=== PATIENT | female | born 1975 | race Caucasian/White ===

== ENCOUNTER 2024-08-23 20:09 | Emergency (ER) | payer MEDICARE, SELFPAY ==
[2024-08-23] VITALS (12 sets, daily range): BP systolic 95–123; BP diastolic 63–82; PULSE 77–82; RESP 15–18; TEMP 36.4–37.1; O2SAT 92–100
--- NOTE | ~2024-08-23 | XR_ITS ---
Portable chest x-ray Comparison: None Clinical History: Dyspnea Findings: Lungs are clear, without focal consolidation or pleural effusion. Cardiomediastinal silho uette is unremarkable. Bones and soft tissues are unremarkable. Impression: Normal chest. Reviewed, dictated and finalized at location . KILN AND RECAUSTICIZING OPERATOR Impression: Normal chest.
[2024-08-23 21:39] LABS: Glucose Point of Care 131 mg/dl (65-105)
--- NOTE | 2024-08-23 21:41 | PC.NURSE ---
Patient ambulates to desk and requests food to eat. Patient states maybe my blood sugar is low and can I have something to eat. Patient informed that we will check her BG to see if it is low since recommend being seen by a provider before eating or drinking anything. POC BG ordered and result was 131.
--- NOTE | 2024-08-23 22:34 | PC.NURSE ---
Patient called for room assignment, no answer. Will call again.
[2024-08-23 23:07] LABS: Glucose Point of Care 82 mg/dl (65-105)
--- OUTSIDE RECORDS SUMMARY | 2024-08-23 23:45 | XMS_ITS ---
Author Organization [facility] Address [address] [place] [address] Care Team Providers Care Pilot Supervisor Name Role Phone Kaylen Miranda Primary Care Provider [phone] Román Vides Unavailable [phone] Allergies Allergen (clinical drug ingredient) Drug/Non Drug Allergy documented on EMR Reaction Allergy Type Onset Date Status codeine Codeine Unknown Drug Allergy Active REASON FOR VISIT on CRU Social History Sex Assigned At : Social History Observation Description Sex Assigned At Female Problems Problem Type SNOMED Code ICD Code Onset Dates Problem Status W/U Status Risk Notes Problem 080484218 Overweight (BMI 25.0-29.9) (E66.3) Active confirmed Vital Signs Weight 166 lbs 08/19/2024 Height 66 in 08/19/2024 BMI 26.79 kg/m2 08/19/2024 Blood pressure systolic 130 mm Hg 08/19/19 25 Blood pressure diastolic 70 mm Hg 025 Heart Rate 103 /min 08/19/2024 Oximetry 97 % 08/19/2024 Respiratory Rate 16 /min 08/19/2024 Encounters Encounter Location Date Provider Diagnosis [place] [address] [place] [address] 08/19/2024 Román Vides Routine general medical examination at a health care facility Z00.00 ; Screening for tuberculosis Z11.1 ; Overweight (BMI 25.0-29.9) E66.3 and Nutritional counseling Z71.3 Assessments Encounter Date Diagnosis (ICD Code) Assessment Notes Treatment Notes Treatment Clinical Notes Section Notes 08/19/2024 Routine [facility] (ICD-10 - Z00.00) Continue treatment as recommended by [facility] staff. Encouraged patient to obtain routine medical care with patient's own primary care provider or establish as a patient at [facility] if no current primary care provider. 08/19/2024 Screening for tuberculosis (ICD-10 - Z11.1) 08/19/2024 Overweight (BMI 25.0-29.9) (ICD-10 - E66.3) 08/19/2024 Nutritional counseling (ICD-10 - Z71.3) 08/19/2024 Other Plan Of Treatment Treatment Notes Assessment Notes Routine general medical exam ination at a [facility] Continue treatment as recommended by [facility] staff. Encouraged patient to obtain routine medical care with patient's own primary care provider or establish as a patient at [facility] if no current primary care provider. Future Test Test Name Order Date QuantiFERON-TB Gold Plus 08/19/2024 Next Appt Details Follow Up: prn, Reason: Progress Notes * Kaylen GOLDSMITHDOB: 8 (48 yo F)Acc No.[id number]:08/19/2024 Patient:?Kaylen GOLDSMITH Provider:?Román Vides, MSN, AGPCNP -BC :1975???Age:48 Y???Sex:Female D ate:08/19/2024 Phone: Address:[address] [place], [place] [id number] Pcp:Kaylen Serrato Short Check In:02:19 PM ETL DATA ARCHITECT Subjective: * Chief Complaints: * ???on CRU * HPI: ???Interim History:?Emergency room visit?Yes.?Was hospitalized?Yes.?Depression Screening:?PHQ-9?Little interest or pleasure in doing things?More than half the days ?Feeling down, depressed, or hopeless?Nearly every day ?Trouble falling or staying asleep, or sleeping too much?Several days ?Feeling tired or having little energy?Several days ?Poor appetite or overeating?Several days ?Feeling bad about yourself or that you are a failure, or have let yourself or your family down?Nearly every day ?Trouble concentrating on things, such as reading the newspaper or watching television?More than half the days ?Moving or speaking so slowly that other people could have noticed; or the opposite, being so fidgety or restless that you have been moving around a lot more than usual?More than half the days ?Thoughts that you would be better off or of hurting yourself in some way?Not at all ?Total Score?15 ?Interpretation?Moderately Severe Depression ???Summary:? Presents for physical as patient is admitted to [facility] at [facility]. ???Do Not Use CSSRS Interpretation and Follow Up Plan:?CSSRS Interpretation and Follow Up Plan. * ROS:?Basic ROS:?Denies?Seizures.?Denies?Suicidal Thoughts.?Psych ROS:?Constitutional?Denies.?Eyes?Denies.?Ears/Nose/Mouth/Throat?Denies.?Respira tory?Denies.?Cardiovascular?Denies.?GI?Denies.??Denies.?Musculoskeletal?Denies .?Neurological?Denies. Integ umentary?Denies.?Hematological/Lymphatic?Denies.? * Medical History:? * Surgical History:?gastric by pass 2008 * Hospitalization/Major Diagno stic Procedure:?mental health 2024 * Family History:?Father: leoncio ohara?Mother: alive.?3 sister(s) - healthy. 2 son(s) , 1 daughter(s) - healthy. .? family healthy. * Social History:?Primary Social History:?Living Arrangement?Living Arrangement:?Homeless ?Alcohol Use?Alcohol Use Frequency:?Weekly or Daily ?Type of alcohol consumed?drinks voka doesnt know how much a day ?Illicit Substance Usage?Illicit Substance Usage:?No ?Employment Status?Employment Status:?Unemployed ???Miscellaneous:?Method of learning?Preferred method of learning:?Reading * Medications:? * Allergies:?Codeine Objective: * Vitals:?Initials: hp, Wt:166 , Ht: 66, BMI:26.79, BP:130/70, HR:103, Oxygen sat %:97, RR:16. * Examination: ???General Examination: ?GENERAL APPEARANCE:?alert, in no acute distress.?HEAD:?normocephalic, atraumatic.?EYES:?BOTH EYES, sclera anicteric, pupils equal, round, reactive to light and accommodation , extraocular movement intact (EOMI).?EARS?BOTH EARS, normal.?NOSE:?nares patent.?ORAL CAVITY:?mucosa moist.?THROAT:?pharynx normal.?NECK/THYROID:?neck supple , no thyromegaly.?SKIN:?warm and dry, no rashes, no suspicious lesions.?HEART:?regular rate and rhythm, S1, S2 normal, no S3, S4, no murmurs, rubs, gallops.?LUNGS:?respirations regular and easy, clear to auscultation bilaterally, no wheezes, rales, rhonchi, clear anteriorly and posteriorly, good air movement.?ABDOMEN:?bowel sounds present, soft, nontender, nondistended, no masses palpable, no organomegaly .?EXTREMITIES:?no edema.?PERIPHERAL PULSES:?2+ throughout.?NEUROLOGIC:?nonfocal, gait normal.?PSYCH:?appropriate affect.?Activity Permissions and Self-Administration Permissions: ?Activity Level & Medication Self-Administration Permissions? Assessment: * Assessment: 1.?Routine general medical e xamination at a health care facility - Z00.00 (Primary)???2.?Screening for tuberculosis - Z11.1???3.?Overweight (BMI 25.0- 29.9) - E66.3???4.?Nutritional counseling - Z71.3??? Plan: * Treatment: 2.?Screening for tuberculosi s?LAB: QuantiFERON-TB Gold Plus (Ordered for 08/19/2024) (Collection Date & Time - 08/19/2024 02:00 PM) * Recommended Wellness and Pre vention Guidelines: * ?Status ?Alert ?Last Done ?Next Due ?Action Taken ?NONCOMPLIANT ?Breast cancer screening ?- ? 025 ?- ?NONCOMPLIANT ?Cervical cancer screening ?- ?08/19 ?- ?NONCOMPLIANT ?Colorectal cancer screening ?- ? ?- ?NONCOMPLIANT ?Depression screening ?- ?08/19/2024 ?- ?NONCOMPLIANT ?HIV screening ?- ?08/19/2024 ?- * Procedure Codes:?61242 SELF- MGMT EDUC & TRAIN, 1 OR1374G BODY MASS INDEX [id number] MEDICAL NUTRITION, INDIV, [id number] [facility] VISIT NEW PATIENT * Preventive Medicine:? ??Counseling:?Care goal follow-up plan:?BMI management provided?Yes ?Above Normal BMI Follow-up?Lifestyle education regarding diet * Follow Up:?prn * * DATA ARCHITECT Sign off status: Completed true * Provider:?Román Vides, MSN, AGPCNP -BC Date:?08/19/2024 Generated for Printing/Faxing/eTransmitting on:?08/23/2024 11:45 PM ETL DATA ARCHITECT History and Physical Notes * HPI (History of Present Illness) Category Sub-Category Detail Notes Category Not es Interim History Was hospitalized Yes Emergency room visit Yes Depression Screening PHQ-9 Little inte rest or pleasure in doing things: More than half the days Feeling down, depressed, or hopeless: Ne dorina every day Trouble falling or staying asleep, or sl eeping too much: Several days Feeling tired or having little energy: S everal days Poor appetite or overeating: Several day s Feeling bad about yourself o r that you are a failure, or have let yourself or your family down: Nearly every day Trouble concentrating on thi ngs, such as reading the newspaper or watching television: More than half the days Moving or speaking so slowly that other people could have noticed; or the opposite, being so fidgety or restless that you have been moving around a lot more than usual: More than half the days Thoughts that you would be b edin off or of hurting yourself in some way: Not at all Total Score: 15 Interpretation: Moderately Severe Depres jayy Summary Presents for ysical as patient is admitted to [facility]idential [facility] at [facility]. Examination Category Sub-Category Detail Notes Category Not es General Examination GENERAL APPEARANCE: alert, in no a cute distress HEAD: normocephalic, atrau matic EYES: BOTH EYES, sclera an icteric, pupils equal, round, reactive to light and accommodation , extraocular movement intact (EOMI) EARS BOTH EARS, normal NOSE: nares patent THROAT: pharynx normal NECK/THYROID: neck supple , no thy romegaly HEART: regular rate and rhy thm, S1, S2 normal, no S3, S4, no murmurs, rubs, gallops LUNGS: respirations regular and easy, clear to auscultation bilaterally, no wheezes, rales, rhonchi, clear anteriorly and posteriorly, good air movement ABDOMEN: bowel sounds present , soft, nontender, nondistended, no masses palpable, no organomegaly NEUROLOGIC: nonfocal, gait iglesia l SKIN: warm and dry, no chano hes, no suspicious lesions EXTREMITIES: no edema PERIPHERAL PULSES: 2+ throughout PSYCH: appropriate affect ORAL CAVITY: mucosa moist Activity Permissions and Self-Administration Permissions Activity Level & Medication Self-Administration Permissions Activity Level Permitted:: The patient/client may fully take part in physical fitness programming including aerobic, muscular strength, and flexibility training without restriction. Medication Self-Administrati on Permissions:: Medications may be self- administered by the patient/client under the supervision of approved staff or administered by nursing staff.
--- OUTSIDE RECORDS SUMMARY | 2024-08-23 23:45 | XMS_ITS ---
Author Organization [facility] Address [address] [place] [address] Care Team Providers Care Car Shagger Name Role Phone Kaylen Miranda Primary Care Provider Román Vides [phone] Social History Sex Assigned At : Social History Observation Description Sex Assigned At Female Encounters Encounter Location Date Provider Diagnosis [address] [place] [address] 08/20/2024 Román Vides Plan Of Treatment No Information Progress Notes * RUPAL MartadangDOB: 8 (48 yo F)Acc No.[id number]:08/20/2024 UNLOCKED PROGRESS NOTE Patient:?Kaylen GOLDSMITH :1975???Age:48 Y???Sex:Female Phone: Address:[facility] [address] [facility] [address] Subjective: * Chief Complaints: * ??? * Medical History:? * Surgical History:? * Hospitalization/Major Diagno stic Procedure:? * Medications:? Objective: * Vitals:? * Physical Examination:? Assessment: Plan: * Treatment: * Procedure Codes:? * * Date:?
--- OUTSIDE RECORDS SUMMARY | 2024-08-23 23:45 | XMS_ITS | Clinical Summary ---
Author Organization [facility] Address [address] [place] [address] Care Team Providers Care Smt Technician Name Role Phone Naya Singh APRN Primary Care Provider [phone] Allergies Active Allergy Reactions Criticality Noted Date Comments Codeine Hives High 09/29/2022 Medications rOPINIRole (REQUIP) 0.5 MG Tablet TAKE 1 TABLET BY MOUTH EVERY DAY AT BEDTIME 12/18/2022 Active prazosin (MINIPRESS) 5 MG Capsule 10/12/2022 Active Mirtazapine (REMERON) 7.5 MG Tablet 01/11/2023 Active lamoTRIgine (LaMICtal) 100 MG Tablet TAKE 1 TABLET BY MOUTH DAILY IN ADDITION TO 200 MG TABLET 12/18/2022 Active lamoTRIgine (LaMICtal) 200 MG Tablet 01/11/2023 Active gabapentin (NEURONTIN) 300 MG Capsule Take 1,200 mg by mouth. Active Desvenlafaxine Succinate 100 MG TABLET SR 24 HR Take 100 mg by mouth. 09/27/2022 Active Vraylar 1.5 MG Capsule Take 1 Capsule by mouth daily. 12/06/2022 Active busPIRone (BUSPAR) 10 MG Tablet 01/11/2023 Active Buprenorphine HCl-Naloxone HCl 4-[address] 1 FILM UNDER THE TONGUE EVERY DAY 01/11/2023 Active Cariprazine HCl 1.5 MG Capsule Take 1.5 mg by mouth. Active metroNIDAZOLE (FLAGYL) 500 MG TabletIndicatio ns:BV (bacterial vaginosis) Sig: Take 1 PO twice daily x 7 days. Take with food. NO ETOH 14 Tablet 02/01/2023 Active fluconazole (DIFLUCAN) 150 MG TabletIndicatio ns:Antibiotic-i nduced yeast infection Sig: Take 1 PO at onset of vaginal itching 1 Tablet 02/01/2023 Active Active Problems No known active problems Social History Tobacco Use Types Packs/Day Years Used Date Smoking Tobacco: Unknown Comments No Sex and Gender Information Value Date Recorded Sex Assigned at Not on file Legal Sex Female 4:51 PM CDT Gender Identity Not on file Sexual Orientation Not on file Last Filed Vital Signs Vital Sign Reading Time Taken Comments Blood Pressure 129/79 02/01/2023 5:35 PM CDT Pulse 67 02/01/2023 5:35 PM CDT Temperature 36.3 ??C (97.4 ??F) 02/01/2023 5:35 PM CD T Respiratory Rate 18 02/01/2023 5:35 PM CDT Oxygen Saturation 97% 02/01/2023 5:35 PM CDT Inhaled Oxygen Concentration - - Weight 77.6 kg (171 lb) 02/01/2023 5:35 PM CDT Height - - Body Mass Index - - Plan of Treatment Health Maintenance Due Date Last Done Comments Pap Smear 1998 Cervical Cancer Screening (CCS) 10/03/2007 HPV/Cotest 10/03/2007 Hepatitis B Immunization (3 of 3 - 19+ 3-dose series) 04/04/2017 01/25/2017, 2016 Discussion re Starting/Frequency of Mammograms 2017 Colonoscopy 2022 Colorectal Cancer Screening 2022 Influenza Immunization (#1) 2024 06/09/2020, 1 SARS-COV-2 Immunization (2 - season) 2024 01/26/2021 Respiratory Syncytial Virus (RSV) Immunization (Adult) (1 - 1-dose 75+ series) 2052 DTaP/Tdap/Td Immunization Discontinued 2016, 03/19/2003, 02/06/1983, Additional history exists TdaP Immunization Completed 01/25/2017 Hepatitis C Virus (HCV) Screening Completed 12/28/2022, 12/28/2022, 09/29/2022 Meningococcal Immunization (ACWY) Aged Out No longer eligible based on patient's age to complete this topic Pneumococcal Immunization Combined Aged Out No longer eligible based on patient's age to complete this topic Rotavirus Immunization Aged Out No lo nger eligible based on patient's age to complete this topic Insurance MEDICARE C [facility] Care Teams Smt Technician Relationship Specialty Start Date End Date Naya Singh APRN [address] [place] [id number] PCP - General Family Medicine 02/01/23
--- OUTSIDE RECORDS SUMMARY | 2024-08-23 23:45 | XMS_ITS | Data Portability ---
Author Organization ZARINA DENNISGraham Baxter Address [address] [place] [address] Assessment No assessment recorded. Plan of Treatment Reminders Order Date Submit Date Provider Last Modified By Organization Details Last Modified Time Details Appointments None recorded. Lab hepatic function panel, serum 2014 015 [facility], [address] [place] [address], [address], [place], [address], 5 09:23:45 CBC w/ auto diff 2014 015 [facility], [address] [place] [address], [address], [place], [address], 5 09:23:43 TSH, serum or plasma 2014 015 [facility], [address] [place] [address], [address], [place], [address], 5 09:23:45 BMP, serum or plasma 2014 015 [facility], [address] [place] [address], [address], [place], [address], 5 09:23:44 lipid panel, serum 2014 015 [facility], [address] [place] [address], [address], [place], [address], 5 09:23:44 pap, IG + CT/NG + HR HPV 2014 015 [facility], [address] [facility], [address], [place], [address], 5 13:35:31 wet mount 2014 015 J[facility], [address] [facility], [address], [place], [address], 5 11:41:[address] referral - hx of alcohol and drug abuse. Notes increased liver enzymes in the past. Needs to establish care. Please eval and treat. 2014 015 ATHENAFAX Not available 5 18:50:51 endocrinol ogy referral - hx of gastric bypass and drug/alcoh ol abuse. Has developed hypoglycem ia and dumping syndrome. New to area and needs to establish care. Please eval and treat. 2014 015 ATHENAFAX Not available 5 19:55:14 Procedures None recorded. Surgeries None recorded. Imaging None recorded. Medication Orders chlordiaze poxide 25 mg capsule [address], [address], [place], [place], [id number], 5 16:15:12 hydrochlor othiazide 12.5 mg tablet [address], [address], [place], [id number], 5 16:15:12 citalopram 40 mg tablet [address], [address], [place], [id number], 5 16:15:12 olanzapine 20 mg tablet 2014 015 [place] [address] [address], [address], [address], [place], [place], [id number], 5 16:15:12 chlordiaze poxide 25 mg capsule 2014 015 [place] [address] [address], [address], [place], [place], [place], [id number], 5 16:15:12 citalopram 20 mg tablet 2014 015 [email or web address] [place] [address] [address], [address], [place], [place], [place], [id number], 5 10:42:18 Diflucan 150 mg tablet 2014 015 [place] [address] [address], [address], [place] [address] [place] [address], [id number], 5 14:05:24 nystatin 100,000 unit/gram topical powder 2014 015 [place] [address] [address], [address], [address], [place], [place], [id number], 5 14:05:24 Hibiclens 4 % topical liquid 2014 015 [place] [address] [address], [address], [place], [place], [place], [id number], 5 14:05:23 Bactroban Nasal 2 % ointment 2014 015 [place] [address] [address], [address], [place], [place], [place], [id number], 10/06/201 5 14:05:23 Levaquin 750 mg tablet 2014 015 [facility]-[address]11, [address] [facility], [place], [place], [id number], 5 14:05:24 Patient TargetsNo targets recorded. Patient Instructions Encounter Date Encounter Id Patient Instructions Last Modified By Organization Details Last Modified Time 03/03/2015 [id number] Increasing Citalopram to 40mg daily. Increasing Olanzapine to 20mg at night. Starting HCTZ 12.5mg tablet once daily for lower extremity edema. Monitor BP at home to make sure you are not less than 90/60. Will re-eval in 2-3 weeks. Lab work to check electrolytes, blood counts, thyroid function? ? ?and liver function. Will restart Librium at 25mg twice a day for 14 days. [email or web address] Not available 03/03/2015 12:05:13 05/03/2015 [id number] skin abscess: care instructions [email or web address] Not available 05/04/2015 08:57:14 Reason for Referral Pants Presser Referral for In creased liver function hx of alcohol and drug abuse. Notes increased liver enzymes in the past. Needs to establish care. Please eval and treat. Referring Physician: Penelope Baker, Test Carrier, Encounter Date: 03/03/2015 Endocrinology Referral for H ypoglycemia hx of gastric bypass and drug/alcohol abuse. Has developed hypoglycemia and dumping syndrome. New to area and needs to establish care. Please eval and treat. Referring Physician: Penelope Baker Test Carrier, Encounter Date: 03/03/2015 Results Created Date Observation Date Name Description Value Unit Range Abnormal Flag Note LastModifiedBy Organization Detail LastModifiedTime 03/03/20 15 03/04/2015 CBC w/ auto diff WBC 5.7 x10e3 /uL 3.4-10 .8 Not Available [facility] ([facility]) [address] [facility], [place], [address], 03/04/2015 09:23:43 03/03/20 15 03/04/2015 CBC w/ auto diff RBC 3.87 x10e6 /uL 3.77-5 .28 Not Available [facility] ([facility]) [address] [facility], [place], [address], 03/04/2015 09:23:43 03/03/20 15 03/04/2015 CBC w/ auto diff hemoglobin 11.5 g/dL 11.1-1 5.9 Not Available [facility] ([facility]) [address] [facility], [place], [address], 03/04/2015 09:23:43 03/03/20 15 03/04/2015 CBC w/ auto diff hematocrit 34.8 % 34.0-4 6.6 Not Available [facility] ([facility]) [address] [facility], [place], [address], 03/04/2015 09:23:43 03/03/20 15 03/04/2015 CBC w/ auto diff MCV 90 fL 79-97 Not Available [facility] ([facility]) [address] [facility], [place], [address], 03/04/2015 09:23:43 03/03/20 15 03/04/2015 CBC w/ auto diff MCH 29.7 pg 26.6-3 3.0 Not Available [facility] ([facility]) [address] [facility], [place], [address], 03/04/2015 09:23:43 03/03/20 15 03/04/2015 CBC w/ auto diff MCHC 33.0 g/dL 31.5-3 5.7 Not Available [facility] ([facility]) [address] [facility], [place], [address], 03/04/2015 09:23:43 03/03/20 15 03/04/2015 CBC w/ auto diff RDW 14.6 % 12.3-1 5.4 Not Available [facility] ([facility]) [address] [facility], [place], [address], 03/04/2015 09:23:43 03/03/20 15 03/04/2015 CBC w/ auto diff platelets 450 x10e3 /uL 150-37 9 above high normal Not Available [facility] ([facility]) [address] [place], [address], 03/04/2015 09:23:43 03/03/20 15 03/04/2015 CBC w/ auto diff neutrophils 58 % Not Available [facility] ([facility]) [address] [place], [address], 03/04/2015 09:23:43 03/03/20 15 03/04/2015 CBC w/ auto diff lymphs 28 % Not Available [facility] ([facility]) [address] [place], [address], 03/04/2015 09:23:43 03/03/20 15 03/04/2015 CBC w/ auto diff monocytes 8 % Not Available [facility] ([facility]) [address] [place], [address], 03/04/2015 09:23:43 03/03/20 15 03/04/2015 CBC w/ auto diff eos 5 % Not Available [facility] ([facility]) [address] [place], [address], 03/04/2015 09:23:43 03/03/20 15 03/04/2015 CBC w/ auto diff basos 1 % Not Available [facility] ([facility]) [address] [place], [address], 03/04/2015 09:23:43 03/03/20 15 03/04/2015 CBC w/ auto diff immature cells INFUSION NURSE Not Available [facility] ([facility]) [address] [place], [address], 03/04/2015 09:23:43 03/03/20 15 03/04/2015 CBC w/ auto diff neutrophils (absolute) 3.3 x10e3 /uL 1.4-7. 0 Not Available [facility] ([facility]) [address] [facility], [place], [address], 03/04/2015 09:23:43 03/03/20 15 03/04/2015 CBC w/ auto diff lymphs (absolute) 1.6 x10e3 /uL 0.7-3. 1 Not Available [facility] ([facility]) [address] [facility], [place], [address], 03/04/2015 09:23:43 03/03/20 15 03/04/2015 CBC w/ auto diff monocytes(ab solute) 0.4 x10e3 /uL 0.1-0. 9 Not Available [facility] ([facility]) [address] [facility], [place], [address], 03/04/2015 09:23:43 03/03/20 15 03/04/2015 CBC w/ auto diff eos (absolute) 0.3 x10e3 /uL 0.0-0. 4 Not Available [facility] ([facility]) [address] [facility], [place], [address], 03/04/2015 09:23:43 03/03/20 15 03/04/2015 CBC w/ auto diff baso (absolute) 0.0 x10e3 /uL 0.0-0. 2 Not Available [facility] ([facility]) [address] [facility], [place], [address], 03/04/2015 09:23:43 03/03/2003/04/2015 CBC w/ auto diff immature granulocytes 0 % Not Available [facility] ([facility]) [address] [facility], [place], [address], 03/04/2015 09:23:43 03/03/2003/04/2015 CBC w/ auto diff immature grans (abs) 0.0 x10e3 /uL 0.0-0. 1 Not Available [facility] ([facility]) [address] [facility], [place], [address], 03/04/2015 09:23:43 03/03/20 15 03/04/2015 CBC w/ auto diff NRBC INFUSION NURSE Not Available [facility] ([facility]) [address] [place], [address], 03/04/2015 09:23:43 03/03/20 15 03/04/2015 CBC w/ auto diff hematology comments: INFUSION NURSE Not Available [facility] ([facility]) [address] [place], [address], 03/04/2015 09:23:43 03/03/20 15 03/04/2015 BMP, serum or plasm a glucose, serum 83 mg/dL 65-99 Not Available [facility] ([facility]) [address] [facility] [place], [address], 03/04/2015 09:23:44 03/03/20 15 03/04/2015 BMP, serum or plasm a BUN 12 mg/dL 6-20 Not Available [facility] ([facility]) [address] [facility] [place], [address], 03/04/2015 09:23:44 03/03/20 15 03/04/2015 BMP, serum or plasm a creatinine, serum 0.77 mg/dL 0.57-1 .00 Not Available [facility] ([facility]) [address] [facility] [place], [address], 03/04/2015 09:23:44 03/03/20 15 03/04/2015 BMP, serum or plasm a eGFR if nonafricn AM 99 mL/mi n/1.7 3 >59 Not Available [facility] ([facility]) [address] [facility] [place], [address], 03/04/2015 09:23:44 03/03/20 15 03/04/2015 BMP, serum or plasm a eGFR if africn AM 114 mL/mi n/1.7 3 >59 Not Available [facility] ([facility]) [address] [facility] [place], [address], 03/04/2015 09:23:44 03/03/20 15 03/04/2015 BMP, serum or plasm a BUN/creatini ne ratio 16 8-20 Not Available [facility] ([facility]) [address] [facility] [place], [address], 03/04/2015 09:23:44 03/03/20 15 03/04/2015 BMP, serum or plasm a sodium, serum 143 mmol/ L 134-14 4 Not Available [facility] ([facility]) [address] [facility] [place], [address], 03/04/2015 09:23:44 03/03/20 15 03/04/2015 BMP, serum or plasm a potassium, serum 4.3 mmol/ L 3.5-5. 2 Not Available [facility] ([facility]) [address] [place], [address], 03/04/2015 09:23:44 03/03/20 15 03/04/2015 BMP, serum or plasm a chloride, serum 105 mmol/ L 97-108 Not Available [facility] ([facility]) [address] [facility] [place], [address], 03/04/2015 09:23:44 03/03/20 15 03/04/2015 BMP, serum or plasm a carbon dioxide, total 22 mmol/ L 18-29 Not Available [facility] ([facility]) [address] [place], [address], 03/04/2015 09:23:44 03/03/20 15 03/04/2015 BMP, serum or plasm a calcium, serum 8.9 mg/dL 8.7-10 .2 Not Available [facility] ([facility]) [address] [place], [address], 03/04/2015 09:23:44 03/03/20 15 03/04/2015 lipid panel , serum cholesterol, total 155 mg/dL 100-19 9 Not Available [facility] ([facility]) [address] [facility] [place], [address], 03/04/2015 09:23:44 03/03/20 15 03/04/2015 lipid panel , serum triglyceride s 81 mg/dL 0-149 Not Available [facility] ([facility]) [address] [facility] [place], [address], 03/04/2015 09:23:44 03/03/20 15 03/04/2015 lipid panel , serum HDL cholesterol 38 mg/dL >39 below low normal ACCOR DING TO ATP-I II GUIDE LINES , HDL-C >59 MG/DL IS CONSI DERED A NEGAT CHRISSY RISK FACTO R FOR CHD. Not Available [facility] ([facility]) [address] [facility] [place], [address], 03/04/2015 09:23:44 03/03/20 15 03/04/2015 lipid panel , serum VLDL cholesterol marie 16 mg/dL 5-40 Not Available [facility] ([facility]) [address] [facility] [place], [address], 03/04/2015 09:23:44 03/03/20 15 03/04/2015 lipid panel , serum LDL cholesterol calc 101 mg/dL 0-99 above high normal Not Available [facility] ([facility]) [address] [facility] [place], [address], 03/04/2015 09:23:44 03/03/20 15 03/04/2015 lipid panel , serum comment: INFUSION NURSE Not Available [facility] ([facility]) [address] [facility] [place], [address], 03/04/2015 09:23:44 03/03/20 15 03/04/2015 hepat ic funct ion panel , serum protein, total, serum 6.3 g/dL 6.0-8. 5 Not Available [facility] ([facility]) [address] [facility] [place], [address], 03/04/2015 09:23:45 03/03/20 15 03/04/2015 hepat ic funct ion panel , serum albumin, serum 3.9 g/dL 3.5-5. 5 Not Available [facility] ([facility]) [address] [facility] [place], [address], 03/04/2015 09:23:45 03/03/20 15 03/04/2015 hepat ic funct ion panel , serum bilirubin, total 0.2 mg/dL 0.0-1. 2 Not Available [facility] ([facility]) [address] [facility] [place], [address], 03/04/2015 09:23:45 03/03/20 15 03/04/2015 hepat ic funct ion panel , serum bilirubin, direct 0.09 mg/dL 0.00-0 .40 Not Available [facility] ([facility]) [address] [place], [address], 03/04/2015 09:23:45 03/03/20 15 03/04/2015 hepat ic funct ion panel , serum alkaline phosphatase, S 111 IU/L 39-117 Not Available [facility] ([facility]) [address] [place], [address], 03/04/2015 09:23:45 03/03/20 15 03/04/2015 hepat ic funct ion panel , serum AST (SGOT) 64 IU/L 0-40 above high normal Not Available [facility] ([facility]) [address] [place], [address], 03/04/2015 09:23:45 03/03/20 15 03/04/2015 hepat ic funct ion panel , serum ALT (SGPT) 32 IU/L 0-32 Not Available [facility] ([facility]) [address] [place], [address], 03/04/2015 09:23:45 03/03/20 15 03/04/2015 TSH, serum or plasm a TSH 1.560 uIU/m L 0.450- 4.500 Not Available [facility] ([facility]) [address] [place], [address], 03/04/2015 09:23:45 03/14/20 15 03/14/2015 wet mount trichomonas exam NEGATI VE negati ve Not Available [facility] ([facility]) [address] [place], [address], 03/14/2015 11:41:52 03/14/20 15 03/14/2015 wet mount yeast exam NEGATI VE negati ve Not Available [facility] ([facility]) [address] [place], [address], 03/14/2015 11:41:52 03/14/20 15 03/14/2015 wet mount clue cell exam NO CLUE CELLS SEEN. negati ve Not Available [facility] ([facility]) [address] [place], [address], 03/14/2015 11:41:52 03/14/20 15 03/16/2015 pap, IG + CT/NG + HR HPV chlamydia, nuc. acid amp NEGATI VE negati ve Not Available [facility] ([facility]) [address] [place], [address], 03/23/2015 13:35:31 03/14/20 15 03/16/2015 pap, IG + CT/NG + HR HPV gonococcus, nuc. acid amp NEGATI VE negati ve Not Available [facility] ([facility]) [address] [place], [address], 03/23/2015 13:35:31 03/14/20 15 03/18/2015 pap, IG + CT/NG + HR HPV diagnosis: COMMEN T NEGAT CHRISSY FOR INTRA EPITH ELIAL LESIO N AND ELADIA GARCIA . THIS SPECI MEN WAS RESCR EENED PART OF OUR QUALI TY CONTR OL PROGR AM. Not Available [facility] ([facility]) [address] [place], [address], 03/23/2015 13:35:31 03/14/20 15 03/18/2015 pap, IG + CT/NG + HR HPV specimen adequacy: PHILIPPE Magallanes SATIS FACTO RY FOR EVALU ATION . ENDOC ERVIC AL AND/O R SQUAM OUS METAP LASTI C CELLS (ENDO CERVI MARIE COMPO NENT) ARE PRESE NT. Not Available [facility] ([facility]) [address] [facility], [place], [address], 03/23/2015 13:35:31 03/14/20 15 03/18/2015 pap, IG + CT/NG + HR HPV clinician provided ICD9: PHILIPPE Magallanes V72.3 1 ; LAURA ANAYA OLOGI MARIE EXAMI NATIO N Not Available [facility] ([facility]) [address] [facility], [place], [address], 03/23/2015 13:35:31 03/14/20 15 03/18/2015 pap, IG + CT/NG + HR HPV performed by: PHILIPPE PANTOJA, CYTOT ECHNO LOGIS T (ASCP ) Not Available [facility] ([facility]) [address] [facility], [place], [address], 03/23/2015 13:35:31 03/14/20 15 03/18/2015 pap, IG + CT/NG + HR HPV QC reviewed by: RASHEEDA SAN Y CYTOT ECHNO LOGIS T (ASCP ) Not Available [facility] ([facility]) [address] [facility], [place], [address], 03/23/2015 13:35:31 03/14/20 15 03/18/2015 pap, IG + CT/NG + HR HPV . . Not Available [facility] ([facility]) [address] [facility], [place], [address], 03/23/2015 13:35:31 03/14/20 15 03/18/2015 pap, IG + CT/NG + HR HPV note: COMMEN T THE PAP SMEAR IS A SCREE JULIEN TEST DESIG SONYA TO AID IN THE DETEC TION OF PRETTY LIGNA NT AND MALIG NANT CONDI TIONS OF THE UTERI NE CERVI X. IT IS NOT A DIAGN OSTIC PROCE DURE AND SHOUL D NOT BE USED THE SOLE MEANS OF DETEC TING CERVI MARIE CANCE R. BOTH FALSE -POSI TIVE AND FALSE -NEGA TIVE REPOR TS DO OCCUR . Not Available [facility] ([facility]) [address] [facility], [place], [address], 03/23/2015 13:35:31 03/14/20 15 03/18/2015 pap, IG + CT/NG + HR HPV test methodology: COMMEN T THIS LIQUI D BASED THINP REP(R ) PAP TEST WAS SCREE SONYA WITH THE USE OF AN IMAGE GUIDE Giana Velez. Not Available [facility] ([facility]) [address] [facility], [place], [address], 03/23/2015 13:35:31 03/14/20 15 03/18/2015 pap, IG + CT/NG + HR HPV HPV, high-risk TNP THE QUANT ITY OF SPECI MEN JERRY VICTORIA IN THE VIAL AFTER PAP SLIDE PREPA RATIO N WAS LESS THAN THE 4 ML MINIM UM CELL SUSPE NSION REQUI RED. LOW SAMPL E CELLU LARIT Y MAY BE THE CAUSE . SEE HPV, LOW VOLUM E RFX TEST RESUL T. THIS HIGH- RISK HPV TEST DETEC TS THIRT EEN HIGH- RISK TYPES (16/1 8/31/ 33/35 /39/4 5/51/ 52/56 /58/5 ) WITHO UT DIFFE RENTI ATION . Not Available [facility] ([facility]) [address] [facility], [place], [address], 03/23/2015 13:35:31 03/14/20 15 03/23/2015 pap, IG + CT/NG + HR HPV HPV, low volume rfx NEGATI VE negati ve THIS TEST DETEC TS FOURT EEN HIGH- RISK HPV TYPES (16,1 8,31, 33,35 ,39,4 5, 51,52 ,56,5 8,59, 66,68 ) WITHO SOLOMON GAFFNEYE IFEANYI ATDANE . Not Available [facility] ([facility]) [address] [facility], [place], [address], 03/23/2015 13:35:31 Result Notes None recorded. Problems Name Problem SNOMED Code Status Onset Date Resolution Date Notes Provider Name and Address Organization Details Recorded Time Alcoholism 2536666 Active TANA Riley Attn: Raul hermelinda,[address] [facility], [place], [address], [facility] 5 11:08:56 Seizure 16060864 Active establishi ng with Dr. Bean next week. Ember Sellers RN [facility], [facility] 5 16:29:31 Drug abuse 26551481 Active pain medication s, heroine and crack cocaine- clean last 30 days. TANA Riley Attn: Raul hermelinda,[address] [facility], [place], [address], [facility] 5 11:08:56 Essential hypertensi on 83485491 Active TANA Riley Attn: Raul hermelinda,[address] [facility], [place], [address], [facility] 5 14:57:48 Depressive disorder 33364595 Active TANA Riley Attn: Raul hermelinda,[address] [facility], [place], [address], [facility] 5 10:42:18 Anemia 686788286 Active TANA Riley Attn: Raul hermelinda,[address] [place], [address], [facility] 5 15:21:34 Increased liver function 18395236 Active TANA Riley Attn: Raul hermelinda,[address] [facility], [place], [address], [facility] 5 15:21:34 Hypoglycem ia 505809251 Active dumping syndrome. Ember Sellers RN null, [facility] 5 15:26:34 Abscess of skin and/or subcutaneo tissue 30871257 Active David Montano null, [facility] 5 14:05:23 Candidiasi s of skin 08170788 Active David Montano null, [facility] 5 14:05:23 Problem Notes None recorded. Procedures Surgical History Date Name Laterality Status Provider Name and Address Organization Details Recorded Time 07/29/19 09 Gastric Bypass completed TANA Riley Attn: Accounting,[address] [place], [address], [facility] 03/03/2015 11:18:03 07/29/19 03 Tubal Ligation completed TANA Riley Attn: Accounting,[address] [place], [address], [facility] 03/03/2015 11:18:03 07/29/19 01 Cholecystectomy completed TANA Riley Attn: Accounting,[address] [place], [address], [facility] 03/03/2015 11:18:03 Imaging Results None recorded. Procedure Notes None recorded. Medical Equipment None Reported. Allergies Allergen ID Allergen Name Allergen Category Reaction Reaction Severity Criticality Documentation Date Start Date Code Code System Note Provider Name and Address Organization Details Recorded Time [id number] codeine medicatio n anaphylax is Not available Not available 03/03/2015 2670 RxNorm Not Available Not Available Not Available [id number] Benadryl medicatio n other Not available Not available 03/03/2015 56825 7 RxNorm Not Available Not Available Not Available Medications Name Sig Start Date Stop Date Status Note LastModified by Organization Details LastModified Time benztropin e mesylate 1 mg tabs active Not Available Not Available No t Available amoxicilli n 500 mg caps active Not Available Not Available Not Available ondansetro n odt 4 mg tbdp active Not Available Not Available Not Available pindolol 5 mg tabs active Not Available Not Available Not Available citalopram hydrobromi de 10 mg tabs active Not Available Not Available Not Available fluconazol e 150 mg tabs active Not Available Not Available Not Available hydroxyzin e pamoate 50 mg caps active Not Available Not Available N ot Available clindamyci n hcl 300 mg caps active Not Available Not Available Not Available clonidine hcl 0.1 mg tabs active Not Available Not Available Not Available glyset 25 mg tabs active Not Available Not Available Not Available citalopram hydrobromi de 20 mg tabs active Not Available Not Available Not Available citalopram hydrobromi de 40 mg tabs active Not Available Not Available Not Available lorazepam 1 mg tabs active Not Available Not Available No t Available gabapentin 300 mg caps active Not Available Not Available Not Available olanzapine 10 mg tabs active Not Available Not Available N ot Available venlafaxin e hcl er 37.5 mg cp24 active Not Available Not Available Not Available doxepin hcl 50 mg caps active Not Available Not Available Not Available olanzapine 15 mg tabs active Not Available Not Available N ot Available sulfametho xazole/tri methoprim ds 800-160 mg tabs active Not Available Not Available Not Available buspirone hcl 10 mg tabs active Not Available Not Available Not Available hydrochlor othiazide 12.5 mg caps active Not Available Not Available Not Available ibuprofen 800 mg tabs active Not Available Not Available Not Available hydrocodon e/acetamin ophen 5-325 mgtabs active Not Available Not Available Not Available tramadol hcl 50 mg tabs active Not Available Not Available Not Available quetiapine fumarate 100 mg tabs active Not Available Not Available Not Available venlafaxin e hcl 75 mg tabs active Not Available Not Available Not Available doxepin hcl 25 mg caps active Not Available Not Available Not Available penicillin v potassium 500 mg tabs active Not Available Not Available Not Available suboxone mis 8-2mg active Not Available Not Available No t Available fluvoxamin e maleate 25 mg tabs active Not Available Not Available N ot Available olanzapine 20 mg tabs active Not Available Not Available N ot Available clonidine HCl 0.1 mg tablet Take 1 tablet every day by oral route. active Not Available Not Available No t Available citalopram 40 mg tablet Take 1 tablet every day by oral route. 2014 active Not Available Not Available Not Avai lable doxepin 25 mg capsule Take 1 capsule every day by oral route. active Not Available Not Available No t Available Levaquin 750 mg tablet Take 1 tablet every day by oral route for 7 days. 2014 active Not Available Not Available Not Avai lable Glyset 25 mg tablet Take 1 tablet 3 times a day by oral route. 2014 active Not Available Not Available Not Avai lable Diflucan 150 mg tablet Take 1 tablet every day by oral route. 2014 active Not Available Not Available Not Avai lable olanzapine 10 mg tablet Take 1 tablet every day by oral route. active Not Available Not Available No t Available citalopram 20 mg tablet Take 1 tablet every day by oral route. 2014 active Not Available Not Available Not Avai lable chlordiaze poxide 25 mg capsule Take 1 capsule every day by oral route for 7 days. 2014 active Not Available Not Available Not Avai lable ferrous sulfate 325 mg (65 mg iron) tablet Take 1 tablet 3 times a day by oral route. 2014 active Not Available Not Available Not Avai lable hydrochlor othiazide 12.5 mg capsule TAKE 1 CAPSULE BY MOUTH DAILY 2014 active Not Available Not Available Not Avai lable chlordiaze poxide 10 mg capsule Take 1 capsule every day by oral route. 2014 active called to the pharmacy Not Available Not Available Not Available nystatin 100,000 unit/gram topical powder APPLY TO THE AFFECTED AREA(S) abdominal area BY TOPICAL ROUTE 2 TIMES PER DAY 2014 active Not Available Not Available Not Avai lable Hibiclens 4 % topical liquid Apply 1 applicati on every day by topical route for 14 days. 2014 active Not Available Not Available Not Avai lable olanzapine 20 mg tablet Take 1 tablet every day by oral route at bedtime. 2014 active Not Available Not Available Not Avai lable Vistaril 50 mg capsule Take 1 capsule 4 times a day by oral route as needed. active Not Available Not Available No t Available Bactroban Nasal 2 % ointment Take 1 applicati on twice a day by nasal route for 10 days. 2014 active Not Available Not Available Not Avai lable pindolol 5 mg tablet Take 2 tablets every day by oral route. 2014 active Not Available Not Available Not Avai lable hydrochlor othiazide 12.5 mg tablet Take 1 tablet every day by oral route. 2014 active Not Available Not Available Not Avai lable Vitals Date Recorded Body height Body mass index (BMI) Body weight Provider Name and Address Organization Details Last Updated DateTime 03/03/2015 170.815 cm 30.7 kg/m2 87068.33727 5 g Mateusvanessa Cristobal [facility] 03/03/2015 10:57:22 Date Recorded Body temperature Heart rate Systolic blood pressure Diastolic blood pressure Provider Name and Address Organization Details Last Updated DateTime 03/03/2015 98.3 [degF] 60 /min 132 mm[Hg] 84 mm[Hg] Beverleyjane marilee Jain [place] [facility] 03/03/2015 11:01:24 Date Recorded Body weight Body temperature Body mass index (BMI) Body height Systolic blood pressure Diastolic blood pressure Provider Name and Address Organization Details Last Updated DateTime 5 13786.7 52764 g 98.1 [degF] 28.8 kg/m2 175.26 cm 138 mm[Hg] 76 mm[Hg] Ember Sellers RN [place] [facility] 5 10:10:39 Date Recorded Body weight Oxygen saturation Oxygen saturation in Arterial blood by Pulse oximetry Body height Body mass index (BMI) Body temperature Heart rate Systolic blood pressure Diastolic blood pressure Provider Name and Address Organization Details Last Updated DateTime 5 37592.6 5874 g 97 % 97 % 175.26 cm 29.8 kg/m2 98.7 [degF] 90 /min 112 mm[Hg] 64 mm[Hg] Philly Gomes [place] [facility] 5 11:02:33 Social History Question Answer Notes LastModified by Organizat ion Details LastModified Time Tobacco Smoking Status Current Every Day Smoker TANA Riley Attn: Accounting,[address] [place], [address], [facility] 03/03/2015 11:20:43 What Is Your Level Of Alcohol Consumption? None Has Been Sober For 30 Days [place] [id number] Information not available 03/03/2015 Which Illicit Or Recreational Drugs Have You Used? Past History Crack Cocaine And Heroine [place] [address] Information not available 03/03/2015 At What Age Did You Start Smoking Tobacco? 16 [facility] - Information not available 03/03/2015 How Much Tobacco Do You Smoke? 1 PPD [facility] - Information not available 03/03/2015 Sex: Unknown Functional Status None recorded. Mental Status None recorded. Family History Relationship Description Onset Age of this Age Resolved Age Notes LastModified by Organization Details LastModified Time Father Diabetes mellitus [place] [id number] Not available 03/03 11:19:32 Father Hypertensive disorder [email or web address] Not available 03/03 11:19:32 Mother Hypertensive disorder [email or web address] Not available 03/03 11:19:32 Mother Rheumatoid arthritis [email or web address] Not available 03/03 11:19:32 Mother Seizure [place] [id number] Not availabl e 03/03/2015 11:19:32 Sister Epilepsy [facility] - Not availab le 03/03/2015 11:19:32 Sister Epilepsy [email or web address] Not availab le 03/03/2015 11:19:32 Medical History Condition Response GI Problems Y Liver Disease Y Gynecological HistoryNo gynecological history recorded. Obstetrics History GPAL:G 0 P 0 0 0 0 Immunizations Vaccine Type Date Status Note Provider Nam e and Address Organization Details Recorded Time Influenza, split virus, quadrivalent, preservative 5 completed Not Available [facility] 08/15/2019 02:45:27 Past Encounters Encounter ID Performer Location Encounter Start Date Encounter Closed Date Diagnosis/Indication Diagnosis SNOMED-CT Code Diagnosis ICD10 Code Diagnosis Note [id number] [facility] ([facility]) [address] [place] [address] 03/03/2015 10:52:31 03/04/2015 03:46:12 Essential hypertension 50491046 BP is at goal today but she still has pretty significan t lower extremity edema. Will start on low dose HCTZ and have her monitor for hypotensio n. Will also draw labs today to make sure potassium is ok. Depressive disorder 96416459 Feels like the celexa could be doing more for her moods. Will increase today. Does have an upcoming appointmen t with [place] on 03/09. Also states that her olanzapine dose is wrong and she normally takes 20mg at night. Adult heal th examination [id number] Labs as ordered. Discussed healthy diet and exercise. Is doing well in the facility that she is currently in for alcohol and drug rehab. She is due for her PAP, which she can schedule for a later date. Anemia 299266916 Will or daniel CBC today since she is on iron replacemen t therapy. Increased liver function 59518868 Will draw liver enzymes and refer to specialist . Should avoid Tylenol containing products and alcohol at this time. Seizure [id number] Was olayinka justo on Librium for alcohol withdraw and seizure. Is out of her medication . States that she was on 25mg TID, will decrease to 25mg BID and give her enough for 2 weeks. Has upcoming appointmen t with Neurology. Hypoglycemia 240643331 W ill refer to endocrinol madisyn. Should continue previous ordered medication and report any hypoglycem ic symptoms to office. [id number] JESSICA Farias [facility] ([address]) [address] [place] [address] 03/14/2015 10:00:24 03/15/2015 03:46:23 Gynecologic examination 37565776 PAP performed today. Encouraged monthly self breast exams. Will send STI testing with PAP per patient request. Depressive disorder 35261333 Will decrease her celexa back down to 20mg daily with increased anxiety. Seizure [id number] Will we an Librium again today. 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 Candidiasis of skin 4936 3006 B37.2 Yeast infection of the pannus Active immunization 8829 2268 Z23 Health Concerns Section Related Observation LastModified by Organization Detai ls LastModified Time None Recorded Concern Status LastModified by Organization Details LastModified Time None Recorded Advance Directives Directive None Recorded Payers Encounter Date Sequence Insurance Name Policy Number Policy Melendrez Covered Member ID Melendrez Member ID Guarantor Name 03/03/2015 1 [place] Kaylen Goldsmith [id number] Kaylen Goldsmith 03/03/2015 2 [place] WHEN MEDICARE OR MEDICARE REPLACEMENT PRIMARY) Kaylen Goldsmith [id number] Kaylen Goldsmith 03/14/2015 1 [place] Kaylen Goldsmith [id number] Kaylen Goldsmith 03/14/2015 2 [place] WHEN [place] OR MEDICARE REPLACEMENT PRIMARY) Kaylen Goldsmith [id number] Kaylen Goldsmith 05/03/2015 1 [place] Kaylen Goldsmith [id number] Kaylen Goldsmith OBGyn Episode No OBEpisode recorded.
--- OUTSIDE RECORDS SUMMARY | 2024-08-23 23:45 | XMS_ITS | Patient Health Record ---
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 QuantiFERON-TB Gold Plus Negative Negative No response to M tuberculosis antigens detected. Infection with M tuberculosis is unlikely, but high risk individuals should be considered for additional testing (ATS/IDSA/CDC Clinical Practice Guidelines, 2017). The reference range is an Antigen minus Nil result of <0.35 IU/mL. Chemiluminescence immunoassay methodology QuantiFERON Criteria QuantiFERON-TB Gold Plus is a qualitative indirect test for M tuberculosis infection (including disease) and is intended for use in conjunction with risk assessment, radiography, and other medical and diagnostic evaluations. The QuantiFERON-TB Gold Plus result is determined by subtracting the Nil value from either TB antigen (Ag) value. The Mitogen tube serves as a control for the test. QuantiFERON TB1 Ag Value 0.10 QuantiFERON TB2 Ag Value 0.11 QuantiFERON Nil Value 0.12 QuantiFERON Mitogen Value >10.00 Reason For Referral No Information Social History Sex Assigned At : Social History Observation Description Sex Assigned At Female Problems Problem Type SNOMED Code ICD Code Onset Dates Problem Status W/U Status Risk Notes Problem 707043749 Overweight (BMI 25.0-29.9) (E66.3) Active confirmed Vital Signs Heart Rate 103 /min 08/19/2024 Respiratory Rate 16 /min 08/19/2024 Blood pressure diastolic 70 mm Hg 08/19/2024 Oximetry 97 % 08/19/2024 Height 66 in 08/19/2024 Blood pressure systolic 130 mm Hg 08/19/2024 Weight 166 lbs 08/19/2024 BMI 26.79 kg/m2 08/19/2024 Encounters Encounter Location Date Provider Diagnosis [facility] [place] [address] 08/19/2024 Román Vides Routine general medical examination at a [place] care facility Z00.00 ; Screening for tuberculosis Z11.1 ; Overweight (BMI 25.0-29.9) E66.3 and Nutritional counseling Z71.3 [facility] [address] [facility] [place] [address] 08/20/2024 Román Vides Assessments Encounter Date Diagnosis (ICD Code) Assessment Notes Treatment Notes Treatment Clinical Notes Section Notes 08/19/2024 Routine general medical examination at a health care facility (ICD-10 - Z00.00) Continue treatment as recommended by [place] staff. Encouraged patient to obtain routine medical care with patient's own primary care provider or establish as a patient at [facility] if no current primary care provider. 08/19/2024 Screening for tuberculosis (ICD-10 - Z11.1) 08/19/2024 Overweight (BMI 25.0-29.9) (ICD-10 - E66.3) 08/19/2024 Nutritional counseling (ICD-10 - Z71.3) 08/19/2024 Other Plan Of Treatment Future Test Test Name Order Date QuantiFERON-TB Gold Plus 08/19/2024 Insurance Providers Payer Name Payer Address Payer Phone Subscriber Number Group Number Insured Name Patient Relationship to Insured Coverage Start Date Coverage End Date [facility] [address] [address] [place] [address] [id number] Rupal, Kaylen Self - patient is the insured 5 Medical (General) History Surgical History Surgery Date(Month/Year) gastric bypass 2008 Hospitalization History Reason Date(Month/Year) [facility] health [facility] 2024
[2024-08-24] VITALS (20 sets, daily range): BP systolic 104–136; BP diastolic 59–98; PULSE 72–95; RESP 9–28; O2SAT 91–100
--- NOTE | 2024-08-24 00:15 | ECG_ITS ---
Test Date: 2024-08-24 00:15:49 Measurements Intervals Russell Rate: 77 P: 62 VA: 160 QRS: -4 QRSD: 105 T: 33 QT: 382 QTc: 435 Interpretive Statements SINUS RHYTHM WITH OCCASIONAL SUPRAVENTRICULAR PREMATURE COMPLEXES LOW QRS VOLTAGE IN PRECORDIAL LEADS [QRS DEFLECTION < 1.0 mV IN CHEST LEADS] INCOMPLETE RIGHT BUNDLE BRANCH BLOCK [90+ ms QRS DURATION, TERMINAL R IN V1/V2, 40+ ms S IN I/aVL/V4/V5/V6] No previous ECG available for comparison Electronically Signed On 08-24-2024 21:22:10 BRASS INSTRUMENT REPAIR TECHNICIAN by Randy Benitez M.D.
[2024-08-24 00:29] LABS: Basophils Percent Auto 0.4 % (0.2-1.2); Eosinophils Absolute Auto 0.1 K/mm3 (0-0.3); Eosinophils Percent Auto 1.7 % (0-4.4); Hematocrit 36.3 % (37.0-47.0); Hemoglobin 11.7 g/dL (12.0-15.0); Immature Granulocyte Absolute 0.01 K/mm3 (0.00-0.031); Immature Granulocyte Percent A 0.2 % (0-0.5); Lymphocytes Absolute Auto 1.18 K/mm3 (0.9-3.2); Lymphocytes Percent Auto 24.5 % (18.3-44.2); Mean Corpuscular HGB Conc 32.2 g/dl (32-36); Mean Corpuscular Volume 89.9 fl (80-100); Mean Platelet Volume 9.6 fl (7.4-10.4); Monocytes Absolute Auto 0.4 K/mm3 (0.1-0.6); Monocytes Percent Auto 7.7 % (2.6-8.5); Neutrophils Absolute Auto 3.2 K/mm3 (1.3-6.7); Neutrophils Percent Auto 65.5 % (45.5-73.1); Platelet Count Result 219 k/mm3 (150-375); Red Blood Count 4.04 M/mm3 (4.2-5.4); Red Cell Distribution Width 14.7 % (11.5-14.5); White Blood Count 4.8 K/mm3 (4.5-10.0)
--- NOTE | 2024-08-24 00:29 | ED_ITS ---
HPI - General Adult General Chief complaint: Unspecified Stated complaint: Ascites, BLE swelling Time Seen by Provider: 08/23/24 23:28 History of Present Illness HPI narrative: 48-year-old female with a past medical history including alcoholic liver disease, previous alcoholism. Patient presents to the emergency room today with chief complaint of bilateral lower extremity leg swelling, mild abdominal distension and complaints of ascites and edema. Patient states she was just discharged from [facility] after a brief admission for hepatic encephalopathy and complications of her alcoholic liver disease. She states that she had a relapse of drinking and had been drinking episodes prior to that admission to outside hospital. Patient states that she has previously had ascites and paracenteses in the past, previously been on diuretic therapy and had to have albumin replacement but presently no recent administration of albumin or any diuretic therapy presently. Not take any Lasix or spironolactone. Does not have a GI doctor. She recently moved to the area from [place]. She states she was checked in at substance abuse rehab recently and has been doing well without any recent intake of alcohol. Denies any chest pain, shortness a breath, nausea, vomiting, abdominal pain, diarrhea. Her main concern is her swelling extremities. Related Data Allergies Allergy/AdvReac Type Severity Reaction Status Date / Time codeine Allergy Severe Swelling Verified 08/24/24 00:37 of Lip/Tongue/Throat Review of Systems 2 Review of Systems: As reviewed above in HPI Exam 2 Narrative: GENERAL: [Well-appearing, well-nourished, and in no acute distress.] HEAD: [Normocephalic, atraumatic.] EYES: [PERRLA and EOMI.] ENT: Nares clear, no rhinorrhea or epistaxis. Mucous membranes moist. NECK: Supple. CHEST: [Clear to auscultation. No respiratory distress.] HEART: [Regular rate and rhythm]. No murmur heard. [Normal peripheral pulses.] ABDOMEN: Mild abdominal distention but soft and nontender, previous paracenteses scars are evident, no recent, [No rigidity or guarding] EXTREMITIES: Normal range of motion. 2+ pitting edema to the bilateral lower extremities, some telangiectasias over the shins noted. SKIN: Warm, dry, no rash. NEURO: [No focal deficits]. Alert and oriented [x3.] PSYCH: [Normal mood and affect.] Course Vital Signs Vital signs: Vital Signs Temperature 37.1 C 08/23/24 20:47 Pulse Rate 82 08/23/24 20:47 Respiratory Rate 16 08/23/24 20:47 Blood Pressure 117/63 08/23/24 20:47 Pulse Oximetry 100 08/23/24 20:47 Oxygen Delivery Room Air 08/23/24 20:47 Temperature 36.4 C 08/23/24 22:57 Pulse Rate 77 08/23/24 22:57 Respiratory Rate 18 08/23/24 22:57 Blood Pressure 115/68 08/23/24 22:57 Pulse Oximetry 100 08/23/24 22:57 Oxygen Delivery Room Air 08/23/24 20:47 Medical Decision Making MDM Narrative Medical decision making narrative: 48-year-old pleasant female with history of alcoholic liver disease, previous hepatic encephalopathy, ascites. Patient presents to the emergency room with chief complaint of bilateral lower extremity swelling, mild abdominal bloating with some ascites. She states she recently moved to the area, was recently hospitalized for hepatic encephalopathy at outside facility, doing well since discharge. Not present any kind diuretic therapy, and has not established with a GI for outpatient follow-up appointments. Patient consents today with bilateral lower extremity pitting edema with some overlying telangiectasias consistent with manifestations were alcoholic liver disease and cirrhosis. She has a soft nontender abdomen with some mild bloating according to herself. Vital signs are all reassuring without any tachycardia, fever, hypoxia, blood pressure elevations or hypotension. She is otherwise very well-appearing and not in any distress with clear breath sounds and full conversations without dyspnea. Her presentations are likely secondary to cirrhosis with possible low albumin or electrolyte disturbances. The symmetric nature of the swelling makes me less concerned for thromboembolic disease. Will evaluate basic laboratory studies and see if she needs any kind of diuretic therapy, replace electrolytes or elements supplementation. No indications for paracentesis this time and we discussed establishing outpatient GI follow-up for monitoring and repeat evaluation. Patient verbalized understanding. She was given Tylenol for the pain from her leg swelling as well as a Zofran as she states she started becoming nauseous during evaluation. Workup shows no leukocytosis, hemoglobin 11.7 but no baseline. No active bleeding or concern for anemia at this time. Normal platelet count. Coagulation studies within normal limits. Electrolytes within normal limits, normal potassium and magnesium. Normal creatinine and BUN. LFTs are elevated and consistent with her known cirrhosis. Negative troponin. Negative BNP. Albumin and total protein are low consistent with her symptomatology of fluid retention in her legs and edema, mild ascites. Albumin of 2.9. She was given a dose of IV albumin and Lasix to assist in diuresis and oncotic pressure elevation. Chest x-ray independently reviewed and shows no pleural effusions, otherwise clear chest without signs of active infection, pneumothorax or pneumonia. Patient re-evaluated and feeling improved. At this time we will safely send the patient home with a prescription for Lasix for diuresis and instructions on GI follow-up in PCP referral. She will have to follow up closely to make sure she developing any kind of electrolyte imbalances abnormalities. Patient felt comfortable this plan she was safely discharged. Medical Records Medical records reviewed: Yes I reviewed the external patient's medical records. Vital Signs Vital Signs: Vital Signs Temperature 37.1 C 08/23/24 20:47 Pulse Rate 82 08/23/24 20:47 Respiratory Rate 16 08/23/24 20:47 Blood Pressure 117/63 08/23/24 20:47 Pulse Oximetry 100 08/23/24 20:47 Oxygen Delivery Room Air 08/23/24 20:47 Temperature 36.4 C 08/23/24 22:57 Pulse Rate 77 08/23/24 22:57 Respiratory Rate 18 08/23/24 22:57 Blood Pressure 115/68 08/23/24 22:57 Pulse Oximetry 100 08/23/24 22:57 Oxygen Delivery Room Air 08/23/24 20:47 Lab Data Lab results reviewed: Yes I reviewed the patient's lab results. 08/24/24 00:22 08/24/24 00:22 Labs: Lab Results 08/23/24 08/23/24 08/24/24 Range/Units 21:37 23:03 00:22 WBC 4.8 (4.5-10.0) K/mm3 RBC 4.04 L (4.2-5.4) M/mm3 Hgb 11.7 L (12.0-15.0) g/dL Hct 36.3 L (37.0-47.0) % MCV 89.9 (80-100) fl MCH 29.0 (26-34) pg MCHC 32.2 (32-36) g/dl RDW 14.7 H (11.5-14.5) % Plt Count 219 (150-375) k/mm3 MPV 9.6 (7.4-10.4) fl Immature Gran % (Auto) 0.2 (0-0.5) % Neut % (Auto) 65.5 (45.5-73.1) % Lymph % (Auto) 24.5 (18.3-44.2) % Elbert % (Auto) 7.7 (2.6-8.5) % Eos % (Auto) 1.7 (0-4.4) % Baso % (Auto) 0.4 (0.2-1.2) % Lymph # (Auto) 1.18 (0.9-3.2) K/mm3 Elbert # (Auto) 0.4 (0.1-0.6) K/mm3 Eos # (Auto) 0.1 (0-0.3) K/mm3 Baso # (Auto) 0.0 (0.0-0.1) K/mm3 Abs Immat Gran (auto) 0.01 (0.00-0.031) K/mm3 Absolute Neuts (auto) 3.2 (1.3-6.7) K/mm3 Absolute Nucleated RBC 0.000 (0.0-0.012) K/mm3 Nucleated RBC % 0.0 (0.0-0.2) % PT 15.3 H (11.1-14.7) Seconds INR 1.2 APTT 33.0 (22.3-36.8) Seconds Sodium 136 L (137-145) mmol/L Potassium 4.3 (3.4-5.0) mmol/L Chloride 103 (98-107) mmol/L Carbon Dioxide 28 (22-30) mmol/L Anion Gap 5 (4-12) mmol/L BUN 13 (7-17) mg/dL Creatinine 1.02 H (0.7-1.0) mg/dL Estim Creat Clear Calc 61 ml/min Estimated GFR 58 L (59 - ) Glucose 78 (65-110) mg/dL POC Capillary Glucose 131 H 82 (65-105) mg/dl Calcium 7.7 L (8.4-10.2) mg/dL Magnesium 2.1 (1.6-2.3) mg/dL Total Bilirubin 0.9 (0.2-1.3) mg/dL AST 52 H (14-36) U/L ALT 32 (6-35) U/L Alkaline Phosphatase 186 H (38-126) U/L Troponin I < 0.012 (0.000-0.034) ng/mL NT-Pro-B Natriuret Pep 273 H (19.9-100) pg/mL Total Protein 6.0 L (6.3-8.2) g/dL Albumin 2.9 L (3.5-5.1) g/dL Imaging Data Attestation: I personally reviewed and interpreted this imaging study as follows: Discharge Plan Discharge Clinical Impression: Cirrhosis of liver, Edema, peripheral, Low serum albumin Patient Disposition: Home, Self-Care Condition: Stable Instructions: Antibiotic Form, Edema (ED) Additional Instructions: We will send you home with a script for Lasix to control your edema, we have provided a referral for Gastroenterology and a PCP. Follow up with them, return with any new or worsening concerns. Patient Language: Uzbek Prescriptions: New furosemide [Lasix] 20 mg tablet 20 mg PO DAILY Qty: 30 0RF Follow-up/Referrals: Dae Martinez DO [Physician] - 1 Week (establish) PHYSICIAN,DIRECTOR OF ADVERTISING SALES [Primary Care Provider] - Barrera Rucker MD [Physician] - 1 Week (Cirrhosis, edema, ascites) Time of Disposition: 03:12
[2024-08-24] MEDS: ACETAMINOPHEN 500 MG TABLET 1000 MG PO (00:37)
[2024-08-24] MEDS: ONDANSETRON INJ 4 MG/2 ML VIAL IV PUSH (00:38)
[2024-08-24 00:43] LABS: Alanine Aminotransferase 32 U/L (6-35); Albumin Level 2.9 g/dL (3.5-5.1); Alkaline Phosphatase 186 U/L (38-126); Anion Gap 5 mmol/L (4-12); Aspartate Amino Transferase 52 U/L (14-36); Bilirubin,Total 0.9 mg/dL (0.2-1.3); Blood Urea Nitrogen 13 mg/dL (7-17); Calcium 7.7 mg/dL (8.4-10.2); Carbon Dioxide 28 mmol/L (22-30); Chloride 103 mmol/L (98-107); Estimated CRCL calculation 61 ml/min; Estimated Glomerular Filt Rate 58; Glucose 78 mg/dL (65-110); Magnesium 2.1 mg/dL (1.6-2.3); Potassium 4.3 mmol/L (3.4-5.0); Sodium 136 mmol/L (137-145)
[2024-08-24 00:47] LABS: INR 1.2; Prothrombin Time 15.3 Seconds (11.1-14.7)
[2024-08-24] MEDS: ALPRAZolam (*CRX) 0.25 MG TABLET PO (00:51)
[2024-08-24 00:54] LABS: NT Pro B Type Natriuretic Pept 273 pg/mL (19.9-100); Troponin I < 0.012 ng/mL (0.000-0.034)
[2024-08-24] MEDS: FUROSEMIDE INJ 40 MG/4 ML VIAL 20 MG IV PUSH (02:52)
[2024-08-24] MEDS: ALBUMIN HUMAN 25% 25 GM/100 ML 100 ML IVPB (03:01)
--- NOTE | 2024-08-24 05:41 | PC.NURSE ---
this RN called [facility] and gave a report to the RN community recreation coordinator. pt in waiting room and waiting for a ride.
== END 2024-08-24 05:44 | disposition home or self-care (01) ==
PROVIDERS: Emergency Provider Student in an Organized Health Care Education/Training Program
DX: K70.30 Alcoholic cirrhosis of liver without ascites (principal); R60.0 Localized edema; R77.0 Abnormality of albumin; K70.9 Alcoholic liver disease, unspecified; F10.20 Alcohol dependence, uncomplicated; I49.1 Atrial premature depolarization; I45.10 Unspecified right bundle-branch block
CPT/HCPCS: 36415; 71045; 80053; 82948; 83735; 83880; 84484; 85025; 85610; 85730; 93005; 96365; 96366; 96375; 99284; A9270; J1940; J2405; P9047